=== PATIENT | male | born 1985 | race Caucasian/White ===

== ENCOUNTER 2017-10-16 20:24 | Emergency (ER) | payer BC ==
[~2017-10-16 20:24] MED LIST: HYDR-3533 PO; META800 PO; PROM25TA5 PO
[2017-10-16 20:35] VITALS: BP 143/91; PULSE 109; RESP 18; TEMP 98.3
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
== END 2017-10-16 20:52 | disposition home or self-care (01) ==
LOC: NEPD 20:24
DX: F19.94 Other psychoactive substance use, unspecified with psychoactive substance-induced mood disorder (principal); R45.851 Suicidal ideations; M10.9 Gout, unspecified; Z79.899 Other long term (current) drug therapy; Z87.891 Personal history of nicotine dependence; Z87.442 Personal history of urinary calculi
CPT/HCPCS: 99282